=== PATIENT | female | born 1970 | race Caucasian/White ===

== ENCOUNTER → 2022-12-28 10:51 | Outpatient (CLI) | payer BC, SELFPAY ==
--- NOTE | ~2022-12-28 | XR_ITS ---
EXAMINATION: XR elbow LT min 3V DATE: 12/28/2022 11:02 INDICATION: Left elbow pain, initial encounter TECHNIQUE: Anteroposterior, two oblique and lateral views of the left elbow were obtained. COMPARISON: None. FINDINGS: There is a transverse fracture of the radial neck. A plain of the fracture extends to the a rticular surface of the proximal radius. An elbow joint effusion is present. No additional fracture i s identified. Soft tissues are unremarkable. IMPRESSION: 1. Acute intra-articular fracture of the radial neck and head. Reviewed, dictated and finalized at location B.
== END ==
PROVIDERS: PCP Family Medicine; Visit Provider Nurse Practitioner Family
DX: S52.132A Displaced fracture of neck of left radius, initial encounter for closed fracture (principal); X58.XXXA Exposure to other specified factors, initial encounter
CPT/HCPCS: 73080

== ENCOUNTER → 2023-03-24 10:26 | Outpatient (CLI) | payer BC, SELFPAY ==
--- NOTE | ~2023-03-24 | CT_ITS ---
EXAMINATION: CT elbow LT wo con DATE: 03/24/2023 10:46 INDICATION: Displaced fracture of the left radial head TECHNIQUE: High resolution computed tomography (CT) of the left elbow was performed without intraveno us contrast. Additional sagittal and coronal reconstructions were performed. Automated exposure contr ol and iterative reconstruction technique were employed. The dose-length product was 93.69 mGy-cm. COMPARISON: Radiographs dated 12/28/2022, 02/07/2023 and 03/21/2023 FINDINGS: Again seen is a nondisplaced extra-articular fracture extending across the neck of the proximal left radius. There is a negligible amount of nonbridging periost reaction along the metaphyseal side of th e fracture with lucency extending across the still ununited fracture plane. There remains a irregular spiculated irregular margin to the fracture plane with no corticated appearing margins along the fra cture plane to suggest nonunion. The prior mild impaction along the volar and radial sides of the fra cture have decreased which likely accounts for some of the slight widening of the fracture plane reymundo g these sides of the fracture. No involvement of the articular surface either at the radiocapitellar or proximal radioulnar articulations. No other fractures identified. 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 Small enthesophytes along the lateral condyle. IMPRESSION: 1. Minimal productive changes of healing along a still ununited transverse extra articular fracture a cross the neck of the proximal left radius which is in near anatomic alignment. Reviewed, dictated and finalized at location A. FITS CONSULTING ANALYST IMPRESSION: 1. Minimal productive changes of healing along a still ununited transverse extr a articular fracture across the neck of the proximal left radius which is in ne ar anatomic alignment.
== END ==
PROVIDERS: PCP Family Medicine; Visit Provider Orthopaedic Surgery
DX: S52.122A Displaced fracture of head of left radius, initial encounter for closed fracture (principal); X58.XXXA Exposure to other specified factors, initial encounter
CPT/HCPCS: 73200

== ENCOUNTER 2023-08-09 21:35 | Emergency (ER) | payer BC, SELFPAY ==
[2023-08-09] VITALS (10 sets, daily range): BP systolic 105–154; BP diastolic 66–85; PULSE 68–99; RESP 13–19; TEMP 36.4; O2SAT 98–100
--- NOTE | 2023-08-09 21:48 | ECG_ITS ---
SEE SCANNED COPY FOR CONFIRMED REPORT MTDD
[2023-08-09 21:58] LABS: Basophils Percent Auto 0.3 % (0.2-1.2); Eosinophils Absolute Auto 0.1 K/mm3 (0-0.3); Eosinophils Percent Auto 1.4 % (0-4.4); Hematocrit 37.9 % (37.0-47.0); Hemoglobin 12.7 g/dL (12.0-15.0); Immature Granulocyte Absolute 0.01 K/mm3 (0.00-0.031); Immature Granulocyte Percent A 0.1 % (0-0.5); Lymphocytes Absolute Auto 2.27 K/mm3 (0.9-3.2); Lymphocytes Percent Auto 26.2 % (18.3-44.2); Mean Corpuscular HGB Conc 33.5 g/dl (32-36); Mean Corpuscular Hemoglobin 31.8 pg (26-34); Mean Corpuscular Volume 94.8 fl (80-100); Mean Platelet Volume 9.3 fl (7.4-10.4); Monocytes Absolute Auto 0.5 K/mm3 (0.1-0.6); Neutrophils Absolute Auto 5.7 K/mm3 (1.3-6.7); Platelet Count Result 294 k/mm3 (150-375); Red Cell Distribution Width 12.1 % (11.5-14.5); White Blood Count 8.7 K/mm3 (4.5-10.0)
[2023-08-09 22:08] LABS: Alanine Aminotransferase 16 U/L (6-35); Albumin Level 4.5 g/dL (3.5-5.1); Alkaline Phosphatase 71 U/L (38-126); Anion Gap 7 mmol/L (4-12); Aspartate Amino Transferase 24 U/L (14-36); Bilirubin,Total 0.3 mg/dL (0.2-1.3); Blood Urea Nitrogen 13 mg/dL (7-17); Calcium 9.5 mg/dL (8.4-10.2); Carbon Dioxide 25 mmol/L (22-30); Chloride 103 mmol/L (98-107); Estimated CRCL calculation 75 ml/min; Estimated Glomerular Filt Rate > 60; Glucose 113 mg/dL (65-110); Potassium 3.5 mmol/L (3.4-5.0); Sodium 135 mmol/L (137-145)
--- NOTE | 2023-08-09 22:22 | ED.DIZZY ---
HPI - Dizziness General Chief Complaint: Syncope <SALVADOR Hill Last Filed: 08/09/23 23:50> Stated Complaint: syncope <SALVADOR Hill Last Filed: 08/09/23 23:50> Time Seen by Provider: 08/09/23 21:48 <SALVADOR Hill Last Filed: 08/09/23 23:50> Source: patient <SALVADOR Hill Last Filed: 08/09/23 23:50> Mode of arrival: ambulatory <SALVADOR Hill Last Filed: 08/09/23 23:50> Limitations: no limitations <SALVADOR Hill Last Filed: 08/09/23 23:50> History of Present Illness HPI Narrative: This is a 53-year-old female who presents to the ED with chief complaint of syncopal episode occurring just prior to arrival. Patient reports that she was at the dinner table in having a possible 1 with a friend when she started to feel lightheaded woozy. Reports that she started to slump over. After she came to she tried to stand up and then fell to the ground. Patient reports that she is now feeling much better and is currently asymptomatic. Patient's family is here and notes that she was diaphoretic and clammy at home but looks much better now. Patient states that she has had symptoms like this happen many years ago but nothing recently. She does note that she went on a 15 mi bike ride today prior to getting back home for dinner. <SALVADOR Hill Last Filed: 08/09/23 23:50> Related Data Home Medications: Home Medications Medication Instructions Recorded Confirmed venlafaxine 37.5 mg tablet 37.5 mg PO DAILY 01/13/22 03/21/23 <SALVADOR Hill Last Filed: 08/09/23 23:50> Allergies/Adverse Reactions: Allergies Allergy/AdvReac Type Severity Reaction Status Date / Time No Known Allergies Allergy Verified 03/21/23 08:28 <SALVADOR Hill Last Filed: 08/09/23 23:50> Review of Systems Review of Systems: All systems as dictated in HPI <Mio Stein PA-C Last Filed: 08/09/23 23:50> PMFSH Past Medical History Medical History: Medical History Basal cell carcinoma of skin of other parts of face <Mio Stein PA-C - Last Filed: 08/09/23 23:50> Surgical History Surgical History: Surgical History History of adenoidectomy History of <Mio Stein PA-C Last Filed: 08/09/23 23:50> Social History Social History: Social History Smoking status: Never smoker Alcohol intake: current Substance use: never Lack of Transportation: No Lack of Food: Never True Current Housing: I Have Housing Concerned About Future Housing: No Difficulty Paying Gas/Electric Bills: No Difficulty Paying for Meds: No Currently Unemployed: No Education: Bachelor's Degree Difficulty w/ Childcare or Family Care: No Living arrangements: with family Occupation/Education: occupation 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 HEAD: Normocephalic, atraumatic. EYES: PERRLA and EOMI. ENT: Nares clear, no rhinorrhea or epistaxis. Mucous membranes moist. Oropharynx without tonsillar hypertrophy exudate or other lesions. NECK: Supple. No adenopathy or masses. CHEST: No respiratory distress. Clear to auscultation. No wheezes rales or rhonchi HEART: Regular rate and rhythm. No murmur heard. Normal peripheral pulses. ABDOMEN: Soft, nontender, nondistended, normal active bowel sounds. MSK: Normal range of motion. No edema. SKIN: Warm, dry, no rash. NEURO: Alert and oriented x3. No focal deficits. PSYCH: Normal mood and affect. <SALVADOR Hill Last Filed: 08/09/23 23:50> Course CAR DROPPER/PA Physician Supervision I agree with midlevel documentation; I performed
[2023-08-09] MEDS: SODIUM CHLORIDE 0.9% IV 1,000 ML 999 ML IV CONT (22:37)
== END 2023-08-09 23:43 | disposition home or self-care (01) ==
PROVIDERS: Emergency Provider Physician Assistant; PCP Family Medicine
DX: I95.1 Orthostatic hypotension (principal); Z85.828 Personal history of other malignant neoplasm of skin; I44.0 Atrioventricular block, first degree
CPT/HCPCS: 36415; 80053; 85025; 93005; 96360; 99284; J7030

== ENCOUNTER 2024-07-10 13:34 | Outpatient (CLI) | payer BC, SELFPAY ==
--- NOTE | ~2024-07-10 | MM_ITS ---
EXAMINATION: MM screening debbie BI w janina HISTORY: Screening TECHNIQUE: Craniocaudal and mediolateral oblique 3-D tomosynthesis images were obtained and synthetic 2-D images were generated. CAD analysis was submitted and interpreted. COMPARISON: 01/13/2015 BREAST PARENCHYMAL COMPOSITION: Dense: The breasts are heterogeneously dense, which may obscure small masses FINDINGS: There is no evidence of suspicious mass, calcification, or architectural distortion to sugg est malignancy in either breast. There has been no suspicious interval change. IMPRESSION: 1. No mammographic evidence of malignancy. 2. Recommend routine screening mammography in one year. BI-RADS Category 1: Negative Reviewed, dictated and finalized at location B.
== END 2024-07-10 13:35 | disposition home or self-care (01) ==
LOC: MICIMG 13:35
PROVIDERS: PCP Family Medicine; Visit Provider Obstetrics & Gynecology Gynecology
DX: Z12.31 Encounter for screening mammogram for malignant neoplasm of breast (principal); Z78.0 Asymptomatic menopausal state
CPT/HCPCS: 77063; 77067